=== PATIENT | male | born 1950 | race Caucasian/White ===

== ENCOUNTER 2021-09-25 12:09 | Outpatient (REF) | payer MEDICARE, OTHER, SELFPAY ==
[2021-09-25 14:35] LABS: Alanine Aminotransferase 20 U/L (0-40); Anion Gap 14 (12-20); Aspartate Amino Transferase 18 U/L (5-37); Blood Urea Nitrogen 13 mg/dL (9-16); Calcium 9.8 mg/dL (8.4-10.2); Carbon Dioxide 25 mmol/L (22-29); Chloride 106 mmol/L (96-108); Cholesterol 194 mg/dL; Estimated Glomerular Filt Rate > 60; Glucose Fasting 100 mg/dL (60-99); HDL Cholesterol 47 mg/dL; LDL Cholesterol Calculated 131 mg/dl; Potassium 4.8 mmol/L (3.3-5.1); Sodium 140 mmol/L (135-145); Triglycerides 84 mg/dL
[2021-09-25 14:40] LABS: PSA,Total (Free>4and<10) 0.29 ng/mL (0.00-4.00); Vitamin D 25-OH Total 39.9 ng/mL (>30)
== END 2021-09-25 12:10 | disposition home or self-care (01) ==
LOC: HO.HMGCLDS 12:09
PROVIDERS: Visit Provider Internal Medicine
DX: Z12.5 Encounter for screening for malignant neoplasm of prostate (principal); I10 Essential (primary) hypertension
CPT/HCPCS: 36415; 80048; 80061; 82306; 84153; 84450; 84460

== ENCOUNTER 2022-08-28 10:25 | Outpatient (REF) | payer MEDICARE, OTHER, SELFPAY ==
--- NOTE | ~2022-08-28 | XR_ITS ---
EXAMINATION: XR BILATERAL HIPS WITH AP PELVIS CLINICAL INFORMATION: Hip pain. COMPARISON: None TECHNIQUE: AP view of the pelvis and single views of each hip were obtained. FINDINGS: The bones and soft tissues are normal. No fracture. Sacroiliac and hip joints are normal. Pubic symphysis is normal. No abnormal soft tissue calcifications. XR/XR hip BI w PEL1V IMPRESSION: Unremarkable pelvis and hips.
--- NOTE | ~2022-08-28 | XR_ITS ---
EXAMINATION: XR LUMBOSACRAL SPINE WITH OBLIQUES CLINICAL INFORMATION: Low back pain with radiculopathy. COMPARISON: None TECHNIQUE: AP, both oblique, and lateral views of the lumbar spine. Lateral view of the lumbosacral junction. FINDINGS: There is normal lumbar lordosis and spinal alignment. L5-S1 is transitional with partial lumbarization of S1, greater on the right side and a rudimentary disc at S1-2. Mild to moderate multilevel degenerative disc disease is seen most pronounced at L4-5 and L5-S1. The vertebral bodies are intact with the soft tissues are unremarkable. XR/XR lumbar spine 4V min IMPRESSION: 1. Transitional L5-S1. 2. Mild to moderate multilevel degenerative disc disease. No acute abnormality. No significant degenerative changes.
== END 2022-08-28 10:26 | disposition home or self-care (01) ==
LOC: HO.HMGCX 10:25
PROVIDERS: PCP Internal Medicine; Visit Provider Internal Medicine
DX: M54.16 Radiculopathy, lumbar region (principal); M25.551 Pain in right hip; M25.552 Pain in left hip
CPT/HCPCS: 72110; 73521

== ENCOUNTER 2023-04-01 10:39 | Outpatient (AMB) | payer MEDICARE, OTHER, SELFPAY ==
[2023-04-01 10:47] VITALS: BP 110/64; PULSE 59; O2SAT 98; BMI 22.3
--- NOTE | 2023-04-01 10:47 | A.OFFVIS_ITS ---
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 Accompanied by: Self / Same As Patient Allergies lisinopril Allergy (Unknown, Verified 04/01/23 10:47) cough PFSH Medical History Essential hypertension Surgical History H/O shoulder surgery Family History Father Coronary artery disease Essential hypertension Hypercholesteremia Hydrocephalus Mother Essential hypertension Hypercholesteremia Coronary artery disease Breast cancer CVA (cerebral vascular accident) Sister Ovarian cancer Social History Housing: House Patient Tobacco Use Status: Never used Tobacco e-Cigarette/Vaping Use: Never Used Current occupational status: employed Cognitive needs: No Hearing needs: No Vision needs: Yes Coding Diagnoses
--- NOTE | 2023-04-01 10:48 | A.OFFPC_ITS ---
Vital Signs 04/01/23 10:47 Height 5 ft 9 in Weight 151 lb BMI 22.3 BP 110/64 Blood Pressure Location Lt brachial Position Sitting Pulse 59 Pulse Source Pulse Oximeter Pulse Oximetry (%) 98 Intake Visit Reasons: dx's with Crohn disease Intake Note: pt is here for f/u with new diagnosis for chrons disease. Him Clerk Required: No Accompanied by: Self / Same As Patient Allergies lisinopril Allergy (Unknown, Verified 04/30/23 09:47) cough Medication List - Last Reconciled 04/01/23 by Maria Del Rosario Lee MD acetaminophen (Tylenol Extra Strength) 500 mg PO Q6H PRN amlodipine 5 mg PO DAILY menthol-zinc oxide 0.44-20.6 % (Calmoseptine) 1 appl topical QID PRN [nifedipine-lidocaine 0.2-0.5% ointment after each bowel movement] tamsulosin 0.4 mg PO DAILY ustekinumab (Stelara) mg IV Tobacco use date assessed: 08/28/22 Fall risk assessment: No Falls in past year Last assessed Fall Risk: 04/01/23 Dental Screening Dental Screen Date: 04/01/23 Did you have a dental visit in the last 12 months?: Yes Did you have a dental problem in the last 6 months where you did not have access to dental care?: No Was dental information given to patient?: Patient has dentist HPI dx's with Crohn disease 2 HPI Details 72-year-old male with hypertension, tanesha gn prostatic hyperplasia, here today for follow-up. He developed anal abscesses and fistula and was noted to have colonic inflammation on recent flexible sigmoidoscopy, and was diagnosed and treated for Crohn's disease. He is currently being followed by [facility], sees Dr. Piedra, who recently started him on Stelara. Patient just started taking this several days ago and still having problems with sitting for extended periods of time on a hard surface due to pain in his rectal area, but there has not been any anal leakage, and has been able to tolerate food better. [facility] Medical History (Updated 05/05/23 @ 00:41 by Maria Del Rosario Lee MD) Insomnia Family history of breast cancer in mother Family history of malignant neoplasm of ovary in first degree relative Family history of BRCA2 gene positive Nocturia Crohn's colitis Essential hypertension Surgical History S/P anal fissurectomy H/O shoulder surgery Family History Father Coronary artery disease Essential hypertension Hypercholesteremia Hydrocephalus Mother Essential hypertension Hypercholesteremia Coronary artery disease Breast cancer CVA (cerebral vascular accident) Sister Ovarian cancer Social History Housing: House Patient Tobacco Use Status: Never used Tobacco e-Cigarette/Vaping Use: Never Used Current occupational status: employed Cognitive needs: No Hearing needs: No Vision needs: Yes Questionnaire Thrive Questionnaire Date Thrive assessed: 09/25/21 AUDIT C Alcohol Use Questionnaire (AUDIT-C) 1. How often do you have a drink containing alcohol?: 2-4 times a month 2. How many drinks containing alcohol do you have on a typical day when you are drinking?: 1 or 2 3. How often do you have six or more drinks on one occasion?: Never Total Score: 2 BERNICE-7 AMB Questionnaire BERNICE-7 Date BERNICE - 7 assessed: 09/25/21 Feeling nervous, anxious, or on edge: 0 = Not at all Not being able to stop or control worryin = Not at all Worrying too much about different things: 0 = Not at all Trouble relaxin = Nearly every day Being so restless that it is hard to sit still: 0 = Not at all Becoming easily annoyed or irritable: 1 = Several days Feeling afraid as if something awful might happen: 1 = Several days Total BERNICE-7 score (0-4 normal; 5-9 mild; 10-14 moderate; 15-21 severe): 5 Source: Developed by Drs. Taco Elmore, Domitila Tompkins, Hay Haywood and colleagues, with an educational jo-ann from [employer]. Review of Systems Const Denies headache(s) and Reports weakness Eyes Reports no additional complaints ENT Reports no additional complaints, Denies bleeding gums, Denies headache(s) and Denies epistaxis Card Reports no additional complaints Resp Reports no additional complaints GI Details: Still having sharp pains on defecation Denies abdominal pain, Reports bloating, Denies hematochezia, Reports change in bowel habits, Denies heartburn and Denies fecal incontinence Musc Reports no additional complaints, Denies numbness and Denies tingling Skin/Breast Denies lesions and Denies rash Neuro Reports no additional complaints, Denies headache(s), Denies lack of coordination, Denies numbness, Denies tingling and Reports weakness Psych Reports no additional complaints Endo Reports no additional complaints Joey/Lymph Reports no additional complaints Aller/Immun Reports no additional complaints Physical exam (Primary Care) Vital Signs: Last Vital Signs Pulse 59 04/01/23 10:47 BP 110/64 04/01/23 10:47 Pulse Ox 98 04/01/23 10:47 BMI result Body Mass Index 22.3 Tobacco/Smoking Status: Tobacco use Status Tobacco use date assessed 08/28/22 04/01/23 10:53 Patient Tobacco Use Status Never used Tobacco 04/01/23 10:53 e-Cigarette/Vaping Use Never Used 04/01/23 10:53 Thrive Assessment: Date of Thrive Assessment Date Thrive assessed 09/25/21 04/01/23 10:53 Const Other: Alert oriented x3, no acute cardiorespiratory distress noted, ambulatory normal gait HENMT Ears: hearing grossly normal bilaterally General nose exam: Normal external nose present and No nasal discharge present Face and sinus: Yes face symmetric Mouth: Normal oral and palatal mucosa present, tongue normal, oropharynx normal and moist mucous membranes Throat: Yes posterior oropharynx normal Eyes General: appearance normal, both eyes and all related structures Neck Neck: Yes full ROM, Yes no lymphadenopathy and Yes supple Resp Auscultation: clear to auscultation bilaterally Cardio Other: S1-S2 present regular rate and rhythm GI Other: Normal bowel sounds, soft, nontender with no mass palpated Skin Lesions: no lesions Neuro General: gait normal, tone normal, moves all extremities, Normal light touch and pain sensation, no focal motor deficits and CN's II-XI intact bilaterally Gait exam (Neuro): Normal gait present Motor exam (neuro): 5/5 motor strength present throughout Sensory Exam: double simultaneous stimulation for sensation normal Extrem General: Yes full ROM, Yes no joint enlargement, Yes no clubbing, cyanosis or edema, Yes no calf tenderness and Yes normal gait Assessment and Plan Assessment & Plan (1) Crohn's colitis: Code(s): K50.10 - Crohn's disease of large intestine without complications Plan: Recently started on Stelara, followed at [facility] by Dr. Piedra, continue application of Calmoseptine as needed to rectal area for pain control (2) Insomnia: Code(s): G47.00 - Insomnia, unspecified Plan: Prescription sent for zolpidem 10 mg per tablet to take 1 tablet at bedtime as needed for acute episodes of insomnia Medications: New ustekinumab (Stelara) mg IV menthol-zinc oxide 0.44-20.6 % (Calmoseptine) 1 appl topical QID PRN zolpidem 10 mg PO BEDTIME PRN 30 tabs 0RF insomnia Coding Level of Care Code Est Pt Level 3 (79243) Diagnoses Crohn's colitis K50.10 Insomnia G47.00
== END 2023-04-01 11:51 | disposition home or self-care (01) ==
PROVIDERS: PCP Internal Medicine; Visit Provider Internal Medicine
DX: K50.10 Crohn's disease of large intestine without complications (principal); G47.00 Insomnia, unspecified
CPT/HCPCS: 99213

== ENCOUNTER 2023-04-30 08:48 | Outpatient (AMB) | payer MEDICARE, OTHER, SELFPAY ==
--- NOTE | 2023-04-30 09:20 | A.OFFPC_ITS ---
Vital Signs 04/30/23 09:26 Height 5 ft 9 in Weight 157 lb BMI 23.2 BP 112/64 Blood Pressure Location Lt brachial Position Sitting Pulse 64 Pulse Source Pulse Oximeter Pulse Oximetry (%) 100 Oxygen Delivery Method Room Air Intake Visit Reasons: PE Intake Note: Pt is here today for his PE Allergies lisinopril Allergy (Unknown, Verified 04/30/23 09:47) cough Medication List - Last Reconciled 04/30/23 by Maria Del Rosario Lee MD menthol-zinc oxide 0.44-20.6 % (Calmoseptine) 1 appl topical QID PRN tamsulosin 0.4 mg PO DAILY ustekinumab (Stelara) mg IV zolpidem 10 mg PO BEDTIME PRN Tobacco use date assessed: 04/30/23 Fall risk assessment: No Falls in past year Last assessed Fall Risk: 04/30/23 Dental Screening Dental Screen Date: 04/30/23 HPI PE HPI Details 72-year-old male with hypertension, and recently diagnosed with Crohn's colitis, here today for physical exam. He has been feeling better, able to eat well, with no abdominal cramping, no pain on defecation. He still is on Stelara, tolerating medication well. Has gained weight since last visit. Denies any blind in stool and no anal leakage He would like to be referred for genetic testing, as there is a lot of cancer in his family, sister diagnosed with ovarian cancer, mother had breast cancer, and there is positive family history for BRCA gene. [facility] Medical History (Updated 05/05/23 @ 00:41 by Maria Del Rosario Lee MD) Insomnia Family history of breast cancer in mother Family history of malignant neoplasm of ovary in first degree relative Family history of BRCA2 gene positive Nocturia Crohn's colitis Essential hypertension Surgical History S/P anal fissurectomy H/O shoulder surgery Family History Father Coronary artery disease Essential hypertension Hypercholesteremia Hydrocephalus Mother Essential hypertension Hypercholesteremia Coronary artery disease Breast cancer CVA (cerebral vascular accident) Sister Ovarian cancer Social History Housing: House Patient Tobacco Use Status: Never used Tobacco e-Cigarette/Vaping Use: Never Used Current occupational status: employed Cognitive needs: No Hearing needs: No Vision needs: Yes Questionnaire PHQ-9 Over the last 2 weeks, how often have you been bothered by any of the following problems? 1. Little interest or pleasure in doing things: not at all 2. Feeling down, depressed, or hopeless: not at all 3. Trouble falling or staying asleep, or sleeping too much: not at all 4. Feeling tired or having little energy: not at all 5. Poor appetite or overeating: not at all 6. Feeling bad about yourself - or that you are a failure or have let yourself or your family down: not at all 7. Trouble concentrating on things, such as reading the newspaper or watching television: not at all 8. Moving or speaking so slowly that other people could have noticed. Or the opp osite - being so fidgety or restless that you have been moving around a lot more than usual: not at all 9. Thoughts that you would be better off or of hurting yourself in some way: not at all Total score: 0 Depression Screening Interpretation: Negative 82252 - PHQ-9 Billing: Yes Source: Developed by Drs. Taco Elmore, Domitila Tompkins, Hay Haywood and colleagues, with an educational jo-ann from [employer]. Thrive Questionnaire Date Thrive assessed: 04/30/23 I am a: Patient What is your living situation today?: I have a steady place to live Within the past 12 months, did the food you bought not last and you didn't have the money to get more?: Never true Within the past 12 months, did you worry whether your food would run out before you got money to buy more?: Never true Do you have trouble paying for medicines?: No Do you have trouble getting transportation to medical appointments?: No Do you have trouble paying your heating and electricity bill?: No Do you have trouble taking care of your child, family member or friend?: No Do you have trouble with day-to-day activities such as bathing, preparing meals, shopping, managing finances, etc.?: No Are you currently unemployed and looking for a job?: No Are you interested in more education?: No AUDIT C Alcohol Use Questionnaire (AUDIT-C) 1. How often do you have a drink containing alcohol?: 2-4 times a month 2. How many drinks containing alcohol do you have on a typical day when you are drinking?: 1 or 2 3. How often do you have six or more drinks on one occasion?: Never Total Score: 2 BERNICE-7 AMB Questionnaire BERNICE-7 Date BERNICE - 7 assessed: 04/30/23 Feeling nervous, anxious, or on edge: 0 = Not at all Not being able to stop or control worryin = Not at all Worrying too much about different things: 0 = Not at all Trouble relaxin = Not at all Being so restless that it is hard to sit still: 0 = Not at all Becoming easily annoyed or irritable: 0 = Not at all Feeling afraid as if something awful might happen: 0 = Not at all Total BERNICE-7 score (0-4 normal; 5-9 mild; 10-14 moderate; 15-21 severe): 0 Source: Developed by Drs. Taco Elmore, Domitila Tompkins, Hay Haywood and colleagues, with an educational jo-ann from [employer]. BERNICE-7 Assessment Billing BERNICE-7 Assessment Tool: BERNICE-7 Assessment 04861 Review of Systems Const Reports difficulty sleeping, Denies fatigue, Denies fever(s), Denies headache(s), Denies malaise, Reports weight gain and Denies weight loss Eyes Reports no additional complaints ENT Reports no additional complaints, Denies bleeding gums, Denies headache(s) and Denies epistaxis Card Reports no additional complaints Resp Reports no additional complaints GI Denies abdominal pain, Denies hematochezia, Denies heartburn and Denies fecal incontinence Reports nocturia Musc Denies back pain, Denies myalgias, Denies arthralgias, Denies joint swelling, Reports muscle cramps and Denies numbness Skin/Breast Denies lesions and Denies rash Neuro Denies headache(s), Denies lack of coordination, Denies numbness and Reports paresthesias Psych Reports no additional complaints Endo Reports no additional complaints and Denies fatigue Joey/Lymph Reports no additional complaints Aller/Immun Reports no additional complaints Physical exam (Primary Care) Vital Signs: Last Vital Signs Pulse 64 04/30/23 09:26 BP 112/64 04/30/23 09:26 Pulse Ox 100 04/30/23 09:26 Oxygen Delivery Method Room Air 04/30/23 09:26 BMI result Body Mass Index 23.2 Tobacco/Smoking Status: Tobacco use Status Tobacco use date assessed 04/30/23 04/30/23 09:25 Patient Tobacco Use Status Never used Tobacco 04/30/23 09:21 e-Cigarette/Vaping Use Never Used 04/30/23 09:21 PHQ-9: PHQ-9 Score PHQ-9: Total score 0 04/30/23 10:38 Depression Screening Interpretation: Negative Thrive Assessment: Date of Thrive Assessment Date Thrive assessed 04/30/23 04/30/23 09:31 Const Other: Alert oriented x3, no acute cardiorespiratory distress noted, ambulatory normal gait HENMT Ears: hearing grossly normal bilaterally General nose exam: Normal external nose present and No nasal discharge present Face and sinus: Yes face symmetric Mouth: Normal oral and palatal mucosa present, tongue normal, oropharynx normal and moist mucous membranes Throat: Yes posterior oropharynx normal Eyes General: appearance normal, both eyes and all related structures Neck Neck: Yes full ROM, Yes no lymphadenopathy and Yes supple Resp Auscultation: clear to auscultation bilaterally Cardio Other: S1-S2 present regular rate and rhythm GI Other: Normal bowel sounds, soft, nontender with no mass palpated General: Yes no CVA tenderness Back/Spine/Pelvis Back: no CVA tenderness and No back tenderness Skin Lesions: no lesions Neuro General: gait normal, tone normal, moves all extremities, Normal light touch and pain sensation, no focal motor deficits and CN's II-XI intact bilaterally Gait exam (Neuro): Normal gait present Motor exam (neuro): 5/5 motor strength present throughout Sensory Exam: double simultaneous stimulation for sensation normal Extrem General: Yes full ROM, Yes no joint enlargement, Yes no clubbing, cyanosis or edema, Yes no calf tenderness and Yes normal gait Assessment and Plan Assessment & Plan (1) Annual visit for general adult medical examination with abnormal findings: Code(s): Z00.01 - Encounter for general adult medical examination with abnormal findings Plan: Will check appropriate labs. Recommended dental visit every 6 months and regular eye exams, at least every 2 years. Take adequate calcium in diet and vitamin-D 3 at 2000 IU per cap once a day, in addition to weight-bearing exercises to help maintain good muscle tone and weight control. Instructed to do self-testicular exam to check for any mass. Up-to-date with screening colonoscopy. Patient up-to-date with his Tdap, has had Prevnar 13 and Pneumovax 23, due for Prevnar 20, advised to get yearly flu vaccine and get vaccinated against shingles, and his COVID booster, but please check with [facility] if able to take these vaccinations while on Stelara (2) Crohn's colitis: Code(s): K50.10 - Crohn's disease of large intestine without complications Qualifiers: Digestive disease complication type: with abscess Qualified Code(s): K50.114 - Crohn's disease of large intestine with abscess Plan: Followed at [facility] clinic, currently on Stelara (3) Family history of BRCA2 gene positive: Code(s): Z84.81 - Family history of carrier of genetic disease Plan: Referred to [facility], either with Carlin Simon GC or Jennifer Laird GC at [address] [place] [phone] telephone numbers for (4) Essential hypertension: Code(s): I10 - Essential (primary) hypertension Plan: Blood pressure at goal of less than 130/80. Continue with current medication. Reinforced importance of following a low sodium diet, getting regular exercise, and lowering stress levels. (5) Nocturia: Code(s): R35.1 - Nocturia Plan: Check total PSA (6) Family history of malignant neoplasm of ovary in first degree relative: Code(s): Z80.41 - Family history of malignant neoplasm of ovary Plan: Referred to [facility], either with Carlin Simon GC or Jennifer Laird GC at [address] [place] [phone] telephone numbers for (7) Family history of breast cancer in mother: Code(s): Z80.3 - Family history of malignant neoplasm of breast Plan: Referred to [facility], either with Carlin Simon GC or Jennifer Laird GC at [address] [place] [phone] telephone numbers for (8) Insomnia: Code(s): G47.00 - Insomnia, unspecified Plan: Takes zolpidem as needed Orders: Orders Vitamin D 25-OH Total 04/30/23 I10 - Essential (primary) hypertension, K50.10 - Crohn's disease of large intestine without complications, Z00.01 - Encounter for general adult medical examination with abnormal findings TSH reflex Free T4 04/30/23 I10 - Essential (primary) hypertension, K50.10 - Crohn's disease of large intestine without complications, Z00.01 - Encounter for general adult medical examination with abnormal findings Magnesium 04/30/23 I10 - Essential (primary) hypertension, K50.10 - Crohn's disease of large intestine without complications, Z00.01 - Encounter for general adult medical examination with abnormal findings Lipid Panel 04/30/23 I10 - Essential (primary) hypertension, K50.10 - Crohn's disease of large intestine without complications, Z00.01 - Encounter for general adult medical examination with abnormal findings Comprehensive [place]. Panel Fast 04/30/23 I10 - Essential (primary) hypertension, K50.10 - Crohn's disease of large intestine without complications, Z00.01 - Encounter for general adult medical examination with abnormal findings PSA,Total (Free>4and<10) 04/30/23 R35.1 - Nocturia Vitamin B12 and Folate 04/30/23 I10 - Essential (primary) hypertension, K50.10 - Crohn's disease of large intestine without complications, Z00.01 - Encounter for general adult medical examination with abnormal findings Complete Blood Count Auto Diff 04/30/23 I10 - Essential (primary) hypertension, K50.10 - Crohn's disease of large intestine without complications, Z00.01 - Encounter for general adult medical examination with abnormal findings Vitamin B1 04/30/23 I10 - Essential (primary) hypertension, K50.10 - Crohn's disease of large intestine without complications, Z00.01 - Encounter for general adult medical examination with abnormal findings Referrals Genetics Referral K50.10 - Crohn's disease of large intestine without com plications, Z80.3 - Family history of malignant neoplasm of breast, Z80.41 - Family history of malignant neoplasm of ovary, Z84.81 - Family history of carrier of genetic disease Coding Level of Care Code Est Pt Prev Care >65y(15114) Diagnoses Annual visit for general adult medical examination with abnormal findings Z0 0.01 Crohn's disease of colon with abscess K50.114 Digestive disease complication type: with abscess Family history of BRCA2 gene positive Z84.81 Essential hypertension I10 Nocturia R35.1 Family history of malignant neoplasm of ovary in first degree relative Z80.41 Family history of breast cancer in mother Z80.3 Insomnia G47.00 Additional Codes BERNICE-7 Assessment Billing - BERNICE-7 Assessment Tool: BERNICE-7 Assessment [id number] ([id number])
[2023-04-30 09:26] VITALS: BP 112/64; PULSE 64; O2SAT 100; BMI 23.2
== END 2023-04-30 15:04 | disposition home or self-care (01) ==
PROVIDERS: PCP Internal Medicine; Visit Provider Internal Medicine
DX: Z00.01 Encounter for general adult medical examination with abnormal findings (principal); Z84.81 Family history of carrier of genetic disease; I10 Essential (primary) hypertension; Z80.41 Family history of malignant neoplasm of ovary; Z80.3 Family history of malignant neoplasm of breast; K50.114 Crohn's disease of large intestine with abscess; R35.1 Nocturia; G47.00 Insomnia, unspecified
CPT/HCPCS: 99397

== ENCOUNTER 2023-04-30 10:22 | Outpatient (REF) | payer MEDICARE, OTHER, SELFPAY ==
[2023-04-30 13:18] LABS: MANUAL DIFF FLAG NO
[2023-04-30 13:27] LABS: Basophils Absolute Auto 0.1 X10*3/uL (0.0-0.2); Basophils Percent Auto 1.3 % (0-2); Eosinophils Absolute Auto 0.2 X10*3/uL (0.0-0.4); Eosinophils Percent Auto 4.5 % (0-4); Hematocrit 43.5 % (42.0-52.0); Hemoglobin 14.5 g/dl (14.0-18.0); Imm Gran Abs Auto 0.02 X10*3/uL (0.00-0.03); Imm Gran Pct Auto 0.4 % (0.0-0.4); Lymphocytes Absolute Auto 1.7 X10*3/uL (1.2-4.9); Lymphocytes Percent Auto 35.7 % (20-40); Mean Corpuscular HGB Conc 33.3 g/dl (31.0-36.0); Mean Corpuscular Hemoglobin 31.5 pg (27.0-33.0); Mean Corpuscular Volume 94.6 fL (80.0-98.0); Mean Platelet Volume 11.2 fL (9.4-12.4); Monocytes Absolute Auto 0.4 X10*3/uL (0.1-1.2); Monocytes Percent Auto 9.1 % (2-11); Neutrophils Absolute Auto 2.3 x10*3/uL (2.0-8.3); Platelet Count 217 X10*3/uL (160-400); Red Cell Distribution Width 12.9 % (11.0-16.0); White Blood Count 4.6 X10*3/uL (4.8-10.8)
[2023-04-30 13:50] LABS: Alanine Aminotransferase 12 U/L (0-40); Albumin Level 4.2 g/dL (3.5-5.0); Alkaline Phosphatase 65 U/L (39-117); Anion Gap 10 (12-20); Aspartate Amino Transferase 16 U/L (5-37); Bilirubin Total 1.4 mg/dL (0.0-1.0); Blood Urea Nitrogen 12 mg/dL (9-16); Calcium 10.1 mg/dL (8.4-10.2); Carbon Dioxide 30 mmol/L (22-29); Chloride 106 mmol/L (96-108); Cholesterol 169 mg/dL (<200); Estimated Glomerular Filt Rate > 60; Glucose Fasting 92 mg/dL (60-99); HDL Cholesterol 56 mg/dL (>40); LDL Cholesterol Calculated 96 mg/dL (<100); Magnesium 2.2 mg/dL (1.6-2.6); Potassium 5.1 mmol/L (3.3-5.1); Sodium 141 mmol/L (135-145); Total Protein 7.2 g/dL (6.5-8.0); Triglycerides 86 mg/dL (<150)
[2023-04-30 14:00] LABS: PSA,Total (Free>4and<10) 0.52 ng/mL (0.00-4.00)
[2023-04-30 14:04] LABS: TSH reflex Free T4 1.23 uIU/mL (0.32-4.0); Vitamin D 25-OH Total 41.1 ng/mL (>30)
[2023-04-30 14:12] LABS: Folate 13.4 ng/mL (> or = 4.0); Vitamin B12 671 pg/mL (200-900)
[2023-05-04 15:37] LABS: Vitamin B1 7 nmol/L (8-30)
== END 2023-04-30 10:23 | disposition home or self-care (01) ==
LOC: HO.HMGCLDS 10:22
PROVIDERS: PCP Internal Medicine; Visit Provider Internal Medicine
DX: Z00.01 Encounter for general adult medical examination with abnormal findings (principal); Z12.5 Encounter for screening for malignant neoplasm of prostate; K50.10 Crohn's disease of large intestine without complications; R35.1 Nocturia; I10 Essential (primary) hypertension
CPT/HCPCS: 36415; 80053; 80061; 82306; 82607; 82746; 83735; 84153; 84425; 84443; 85025